=== PATIENT | female | born 1975 | race American Indian/Alaskan Native ===

== ENCOUNTER 2017-01-12 19:20 | Emergency (ER) | payer MEDICAID ==
[2017-01-12 19:38] VITALS: BP 140/82
--- NOTE | 2017-01-12 19:38 | EDM.PDOC ---
ED HPI GENERAL MEDICAL PROBLEM - General Chief Complaint: Lower Extremity Injury/Pain Stated Complaint: FELL/BACK OF RIGHT KNEE SORE AND SWOLLEN Time Seen by Provider: 01/12/17 19:38 Source of Information: Reports: Patient History Limitations: Reports: No Limitations - History of Present Illness INITIAL COMMENTS - FREE TEXT/NARRATIVE: 41-year-old female [place] the ED with the painful left knee. She reports that she is coming out of her camper trailer last night and missed the last stair and thus suffered a violent twisting injury to her knee and she fell to the ground. She can tippytoe weight-bear only. Pain is mostly along the anterior aspect of the knee and on exam medial joint space. She banged up her ribs and scraped up her right knee but these are minor injuries. Did not hit her head and was no loss of consciousness. Has had no previous surgery in the left knee. Onset: Sudden Onset Date: 01/11/17 (Injury occurred late last night around 2200 hrs.) Duration: Day(s): (One day), Getting Worse Location: Reports: Lower Extremity, Left (Left knee.) Quality: Reports: Ache, Throbbing Severity: Moderate Improves with: Reports: Rest (But continues to throb and hurt.) Worsens with: Reports: Movement (Her temp to weight-bear.) Context: Reports: Activity (Tripped and fell while walking down Her treaters stare.). Denies: Exercise, Lifting, Sick Contact Associated Symptoms: Reports: No Other Symptoms Treatments [employer] FAMILY: Reports: Acetaminophen Left Knee Pain Score (Numeric/FACES): 9 - Related Data Allergies Allergy/AdvReac Type Severity Reaction Status Date / Time No Known Allergies Allergy Verified 01/12/17 19:38 Home Meds: Home Meds Ciprofloxacin [Cipro] 500 mg PO BID #16 ml 10/07/14 [Rx] Minocycline HCl 100 mg PO BID #28 capsule 10/07/14 [Rx] Multivitamin [Daily Multiple Vitamin] 1 tab PO DAILY 10/07/14 [History] oxyCODONE HCl/Acetaminophen [Percocet 5-325 mg Tablet] 1 - 2 each PO Q4H #20 tablet 10/07/14 [Rx] oxyCODONE HCl/Acetaminophen [Percocet 5-325 mg Tablet] 1 - 2 each PO Q4H PRN # 24 tablet 01/12/17 [Rx] Social & Family History - Tobacco Use Smoking Status *Q: Current Every Day Smoker Years of Tobacco use: 26 - Alcohol Use Days Per Week of Alcohol Use: 0 - Recreational Drug Use Recreational Drug Use: No Review of Systems - Review of Systems Review Of Systems: See Below Constitutional: Reports: No Symptoms Eyes: Reports: No Symptoms Ears: Reports: No Symptoms Nose: Reports: No Symptoms Mouth/Throat: Reports: No Symptoms Respiratory: Reports: Cough Cardiovascular: Reports: No Symptoms GI/Abdominal: Reports: No Symptoms Genitourinary: Reports: No Symptoms Musculoskeletal: Reports: Joint Pain Skin: Reports: No Symptoms Neurological: Reports: No Symptoms (Acute left knee injury. See history of present illness) ED EXAM, GENERAL - Physical Exam Exam: See Below Exam Limited By: No Limitations General Appearance: Alert, WD/WN, Moderate Distress (In obvious discomfort.) Eye Exam: Bilateral Eye: Normal Inspection Back Exam: Normal Inspection, Other (She barely contused her left lateral chest wall there is no bruises or evidence of rib fracture on exam.) Extremities: Other (Examination was essentially limited to the left knee. There is no true traumatic effusion. There is swelling over the distal medial femur and marked pain along the medial joint spasm particularly over the medial collateral ligament and particularly over the superior insertion of the MCL. There is no lateral joint space pain. There is mild pain on palpation of the lateral distal hamstring musculature. Gastrocnemius muscles are normal. Pap steel space is normal. Good distal pulses to her feet.) Neurological: Alert, Oriented, CN II-XII Intact, Normal Cognition, Normal Gait, Normal Reflexes, No Motor/Sensory Deficits, Other (Minimal scratch on the right patella.) Psychiatric: Normal Affect, Normal Mood Skin Exam: Warm, Dry, Intact, Normal Color, No Rash Course - Vital Signs Last Recorded V/S: Last Vital Signs Temp 36.6 C 01/12/17 19:34 Pulse 80 01/12/17 19:34 Resp 20 01/12/17 19:34 BP 140/82 01/12/17 19:34 Pulse Ox 100 01/12/17 19:34 - Orders/Labs/Meds Orders: Active Orders 24 hr Category Date Time Status Knee 3V Lt [CR] Stat Exams 01/12/17 19:42 Ordered Meds: Medications Discontinued Medications Generic Name Dose Route Start Last Admin Trade Name Freq PRN Reason Stop Dose Admin Ibuprofen 800 mg 01/12/17 19:45 01/12/17 19:58 Motrin PO 01/12/17 19:46 800 mg ONETIME ONE Administration Oxycodone/Acetaminophen 1 tab 01/12/17 19:45 01/12/17 19:58 Percocet 325-5 Mg PO 01/12/17 19:46 1 tab ONETIME ONE Administration - Radiology Interpretation Free Text/Narrative:: 41-year-old female presents the ED with an injury to her left knee that occurred last night when she missed a step coming out of her catheter. This resulted in a violent twisting injury to her knee and subsequent fall to the ground. Since that time she's been able to tippytoe weight-bear only. It is worse tonight of course than it was yesterday. Exam reveals no traumatic effusion. Pain is localized to the medial joint compartment particular the MCL along the joint space and the superior insertion of the MCL. Plan x-ray of the knee and then I'll try to stress the joint space to see how bad the MCL has been torn if she can tolerate it. Going to give her Percocet 5/3/25 per ora with 800 mg a marked with Motrin for pain relief. - Re-Assessments/Exams Free Text/Narrative Re-Assessment/Exam: 01/12/17 20:06 x-ray of the knee is within normal limits. On reexamination I was able to stretch the medial joint compartment there is minimal laxity of the ACL up approximately 5 mm. Stressing the MCL causes pain but it did not open up the joint indicating grade 1 strain. Patient will be placed in a long the immobilizer be nonweightbearing crutch walking for the next 5-7 days. She will apply ice pack to the area one half hour of every 4 hours today and tomorrow. To do Aleve 2 tablets every 8 hours to reduce pain and inflammation. Percocet 5/ 3/25 milligram tablets one or 2 every 4-6 hours needed for pain relief. Follow- up with Dr. Mari or Dr. Moran in orthopedic surgery clinic in 14 days time. Departure - Departure Time of Disposition: 20:12 Disposition: Home, Self-Care 01 Condition: Fair Clinical Impression: Sprain of medial collateral ligament of left knee Qualifiers: Encounter type: initial encounter Qualified Code(s): S83.412A - Sprain of medial collateral ligament of left knee, initial encounter - Discharge Information Prescriptions: oxyCODONE HCl/Acetaminophen [Percocet 5-325 mg Tablet] 1 - 2 each PO Q4H PRN # 24 tablet PRN Reason: pain relief. Forms: ED Department Discharge Additional Instructions: Evaluation in the emergency room tonight in regards to acute injury to the left knee that occurred during a missed step last night. Injury is to the medial aspect of the knee and evidence of a medial collateral ligament strain is appreciated on examination. There is moderate swelling also of the lower quadriceps muscle just above the knee joint. X-ray of the knee is normal. There is no true blood within the knee joint. Stressing the MCL indicates a grade 1 strain. On average this takes 14-21 days to get better so that you can walk up and down stairs without any appreciable pain. Treatment is rest and elevation ice pack to the area one half hour out of every 4 hours today and tomorrow. Aleve 2 tablets every 8 hours to relieve pain and inflammation. Percocet 5/325 milligram tablet one or 2 every 4-6 hours as needed for pain not controlled by Aleve alone. Suggest using MiraLAX powder 17 g once daily while on the narcotic or strong pain pill as they are very prone to causing constipation. Suggest arranging follow-up with orthopedic surgeon Dr. Moran or Dr. Mari in the orthopedic surgical [facility]. His call [phone] to arrange an appointment. Follow-up should be done in about 14 days time. - My Orders Last 24 Hours: My Active Orders 01/12/17 19:42 Knee 3V Lt [CR] Stat - Assessment/Plan Last 24 Hours: My Active Orders 01/12/17 19:42 Knee 3V Lt [CR] Stat
[2017-01-12] MEDS ORDERED: Acetaminophen/oxyCODONE 325-5 MG Tab PO ONE (19:45)
[2017-01-12] MEDS ORDERED: Ibuprofen 800 MG Tab PO ONE (19:45)
--- NOTE | 2017-01-13 11:29 | CR ---
Left knee: Portable AP, lateral and sunrise patellar views of the left knee were obtained. Comparison: No previous study. Medial and lateral joint spaces are preserved. No joint effusion is seen. No acute fracture or dislocation is noted. Patellofemoral joint appears within normal limits. Impression: 1. No abnormality is identified on 3 view left knee exam. Diagnostic code #1
== END 2017-01-12 20:25 | disposition home or self-care (01) ==
LOC: JD.ED 19:20
DX: S83.412A Sprain of medial collateral ligament of left knee, initial encounter (principal); F17.200 Nicotine dependence, unspecified, uncomplicated; W19.XXXA Unspecified fall, initial encounter
CPT/HCPCS: 73562; 99284; A9270; 99283